=== PATIENT | male | born 1930 | race Caucasian/White ===

== ENCOUNTER 2016-05-06 16:28 | Emergency (ER) | payer MEDICARE ==
[~2016-05-06] VITALS: Ht 193 cm; Wt 93.2 kg
[~2016-05-06 16:28] MED LIST: 00186-0370-20 IH; AMOXICILLIN 50500 MG PO; ANTIVERT 12.512.5 MG PO; ASPIRIN 32325 MG/TA1 PO; ASPIRIN 32325 MG/TAB PO; ASPIRIN 81M81 MG/TA2 PO; ASTELIN NASAL S34 ML; ASTELIN NASAL S34 ML NS; ATIVAN 0.50.5 MG/TAB PO; BETAMETHASONE D15 G1 TP; BIOTENE DRY MOU DE; BONINE25 MG PO; BROVANA15 MCG/2 M IH; CELLCEPT 250MG250 MG PO; CEPHALEXIN500 M1 PO; CICLOPIROX0.771 TP; CITRACAL + D CA1 TAB; CLOTRIMAZOLE AN1 CRE TP; COMBIRESP IH; DITROPAN 5MG TAB5 MG PO; FERROUS SU325 MG/TAB PO; FLOMAX 0.40.4 MG/CAP PO; FOLIC ACID 11 MG/TA1 PO; IBU600 MG PO; IPRATROPIUM BROM3 M1 IH; LOPROX CR 15GM TOP; MEXITIL 150MG150 MG PO; MILK OF MA400 MG/52; MILLIPRED5 MG PO; MIRALAX PA17 GM/Dose PO; MUCINEX 60600 MG/TA1 PO; MUCUSRELF400T PO; MULTIPLE VITAMI1 CAP PO; MYLANTA PO; NASAREL0.025 MG/1 NS; NATURE'S BLEND400 IU PO; NORCO 325 MG-51 TAB PO; PREDNISONE 5MG5 MG PO; PREDNISONE20 MG PO; PRILOTC PO; PROSCAR 5MG5 MG PO; PULMICORT0.25 MG/2 IH; QUESTRAN LITE 41 PKT PO; QUESTRAN4 GM/9 GM PO; REQUIP0.25 MG PO; RT SPIRIVA18 MCG IH; SENNA-LAX8.6 MG PO; SENOKOT8.6 MG PO; SINGULAIR 110 MG/TAB PO; THIAMINE 1100 MG/TAB PO; TOPROL XL 25MG25 MG PO; TUMS500 MG; TUMS500 MG PO; TYLENOL 325MG325 MG PO; VENTOLIN0.09 MG IH; VICODIN 5/300 PO; VICODIN PO; VITAMIN D31000 IU PO; VITAMIN E 400 U4001 PO; ZOLOFT 100MG100 MG PO; ZOLOFT 25MG25 MG PO; ZYRTEC 10MG10 MG PO; [UNRECOGNIZED DRUG - OTHER] PO
[2016-05-06 16:44] VITALS: TEMP 97.4
[2016-05-06 16:53] LABS: BASO # 0.1 (0.0-0.2); BASO % 0.5 % (0.0-2.0); EOS # 0.1 (0.0-0.7); EOS % 1.4 % (0-4.0); GRAN # 5.8 (1.4-6.5); GRAN % 58.9 % (42.2-75.2); HEMATOCRIT 46.8 % (42.0-52.0); HEMOGLOBIN 15.3 g/dl (13.5-18.0); LYMPH # 2.9 (1.2-3.4); MEAN CELL VOLUME 98 fl (80.0-100.0); MEAN CORPUSCULAR HEMOGLOBIN 32 pg (27.0-31.0); MEAN CORPUSCULAR HGB CONC 33 g/dl (33.0-37.0); MEAN PLATELET VOLUME 10.7 fl (7.4-10.4); MONO # 0.9 (0.1-0.6); MONO % 8.9 % (1.7-9.3); PLATELET COUNT 141 K/mm3 (130-400); RED BLOOD COUNT 4.76 M/mm3 (4.20-5.60); REDCELL DISTRIBUTION WIDTH-CV 13.8 % (11.5-14.5); WHITE BLOOD COUNT 9.8 K/mm3 (4.8-10.8)
[2016-05-06] MEDS ORDERED: DULCOLAX S10 MG/SUPP RC ×2 (17:01→17:03)
[2016-05-06] MEDS ORDERED: IMODIUM 2MG CAPS2 MG PO (17:03)
[2016-05-06 17:20] LABS: ADJUSTED CALCIUM 9.5 mg/dL (8.4-10.2); ALANINE AMINOTRANSFERASE 22 U/L (21-72); ALBUMIN 4.1 gm/dL (3.5-5.0); ALKALINE PHOSPHATASE 61 U/L (50-136); ANION GAP 10 mmol/L (7-16); BLOOD UREA NITROGEN 14 mg/dL (9-20); CALCIUM 9.6 mg/dL (8.4-10.2); CARBON DIOXIDE 27 mmol/L (22-30); CHLORIDE 100 mmol/L (98-107); CREATININE, serum 0.99 mg/dL (0.66-1.25); GLUCOSE 88 mg/dL (74-106); POTASSIUM 4.6 mmol/L (3.4-5.0); SODIUM 138 mmol/L (137-145); TOTAL PROTEIN 7.9 gm/dL (6.4-8.2)
[2016-05-06] MEDS ORDERED: MIRALAX PA17 GM/Dose PO (17:24)
[2016-05-06] MEDS ORDERED: FLONASEALLERGY NS (17:29)
[2016-05-06] MEDS ORDERED: SINEMET 25/101 UDTAB PO (17:30)
[2016-05-06] MEDS ORDERED: XODOL 7.5 PO (17:31)
[2016-05-06 17:32] LABS: TROPONIN-I < 0.012 ng/mL (0.000-0.034)
[2016-05-06 17:50] LABS: THYROID STIMULATING HORMONE 0.991 uIU/mL (0.465-4.680)
[2016-05-06 18:00] LABS: ERYTHROCYTE SEDIMENTATION RATE 6 mm/hr (0-30)
[2016-05-06 18:09] LABS: CREATINE KINASE 34 U/L (55-170)
[2016-05-06 18:52] VITALS: BP 128/85; PULSE 60
== END 2016-05-06 18:59 | disposition home or self-care (01) ==
LOC: COL.ER 16:28
PROVIDERS: Emergency Medicine
DX: R00.1 Bradycardia, unspecified (principal); I49.3 Ventricular premature depolarization

== ENCOUNTER → 2016-07-26 | Outpatient (CLI) | payer MEDICARE ==
[~2016-07-26] VITALS: Ht 193 cm; Wt 88.2 kg
[~2016-07-26] MED LIST changes: +00186-0370-20 INH; +COLACE 100100 MG/CAP PO; +DULCOLAX S10 MG/SUPP RC; +FLONASEALLERGY NS; +IMODIUM 2MG CAPS2 MG PO; +IPRATROPIUM BROM3 M1 INH; +OMNICEF 300MG300 MG PO; +ROBITUSSIN A-C S1 M1 PO; +RT SPIRIVA18 MCG INH; +SINEMET 25/101 UDTAB PO; +XODOL 7.5 PO; +ZITHROMAX Z PA250 MG PO
[2016-07-26 14:12] VITALS: BP 111/59; PULSE 66; TEMP 97.2
== END ==
LOC: EUO 13:25
DX: M81.0 Age-related osteoporosis without current pathological fracture (principal)
CPT/HCPCS: J3489

== ENCOUNTER 2016-12-28 18:48 | Inpatient (IN) | payer MEDICARE ==
[~2016-12-28] VITALS: Ht 195.6 cm; Wt 86.2 kg
[~2016-12-28 18:48] MED LIST changes: -00186-0370-20 INH; -COLACE 100100 MG/CAP PO; -IPRATROPIUM BROM3 M1 INH; -OMNICEF 300MG300 MG PO; -ROBITUSSIN A-C S1 M1 PO; -RT SPIRIVA18 MCG INH; -ZITHROMAX Z PA250 MG PO
[2016-12-28 19:43] LABS: BASO # 0.1 (0.0-0.2); BASO % 0.4 % (0.0-2.0); EOS # 0.1 (0.0-0.7); EOS % 0.8 % (0-4.0); GRAN # 7.6 (1.4-6.5); GRAN % 67.6 % (42.2-75.2); HEMATOCRIT 40.9 % (42.0-52.0); HEMOGLOBIN 13.9 g/dl (13.5-18.0); LYMPH # 2.4 (1.2-3.4); LYMPH % 21.1 % (20.0-51.0); MEAN CELL VOLUME 98 fl (80.0-100.0); MEAN CORPUSCULAR HEMOGLOBIN 33 pg (27.0-31.0); MEAN CORPUSCULAR HGB CONC 34 g/dl (33.0-37.0); MEAN PLATELET VOLUME 9.8 fl (7.4-10.4); MONO # 1.1 (0.1-0.6); MONO % 9.7 % (1.7-9.3); PLATELET COUNT 137 K/mm3 (130-400); RED BLOOD COUNT 4.18 M/mm3 (4.20-5.60); REDCELL DISTRIBUTION WIDTH-CV 13.1 % (11.5-14.5); WHITE BLOOD COUNT 11.2 K/mm3 (4.8-10.8)
[2016-12-28 19:47] LABS: INR 1.1 (0.8-3.0); PROTHROMBIN TIME 11.7 SECONDS (9.7-12.8)
[2016-12-28 19:50] LABS: PARTIAL THROMBOPLASTIN TIME 43.5 SECONDS (26.0-37.0)
[2016-12-28 19:52] LABS: ADJUSTED CALCIUM 9.5 mg/dL (8.4-10.2); ALANINE AMINOTRANSFERASE 17 U/L (21-72); ALBUMIN 3.9 gm/dL (3.5-5.0); ALKALINE PHOSPHATASE 56 U/L (50-136); ANION GAP 9 mmol/L (7-16); BILIRUBIN,TOTAL 0.9 mg/dL (0.0-1.0); BLOOD UREA NITROGEN 19 mg/dL (9-20); CALCIUM 9.4 mg/dL (8.4-10.2); CARBON DIOXIDE 23 mmol/L (22-30); CHLORIDE 102 mmol/L (98-107); GLUCOSE 119 mg/dL (74-106); POTASSIUM 4.3 mmol/L (3.4-5.0); SODIUM 134 mmol/L (137-145); TOTAL PROTEIN 7.5 gm/dL (6.4-8.2)
[2016-12-28 20:04] LABS: B-TYPE NATRIURETIC PEPTIDE 1140 pg/mL (0-450)
[2016-12-28 20:06] LABS: TROPONIN-I < 0.012 ng/mL (0.000-0.034)
[2016-12-28] MEDS ORDERED: COLACE 100100 MG/CAP PO (20:11)
[2016-12-28 20:13] LABS: INFLUENZA B NEGATIVE
[2016-12-28] MEDS ORDERED: IPRATROPIUM BROM3 M1 INH (20:17)
[2016-12-28] MEDS ORDERED: 00186-0370-20 INH (20:17)
[2016-12-28] MEDS ORDERED: RT SPIRIVA18 MCG INH (20:19)
[2016-12-28 20:22] LABS: PH 7 (5-8); SQUAMOUS EPITHELIAL None Seen /hpf; URINE APPEARANCE Clear; URINE BACTERIA None Seen /hpf; URINE BILIRUBIN Negative (NEGATIVE); URINE BLOOD Negative (NEGATIVE); URINE COLOR Yellow; URINE GLUCOSE Negative (NEGATIVE); URINE KETONE Negative (NEGATIVE); URINE RBC None Seen /hpf; URINE UROBILINOGEN Negative (NEGATIVE); URINE WBC 0-2 /hpf
[2016-12-28 23:47] VITALS: BP 158/78; PULSE 87; TEMP 100
[2016-12-29] VITALS (8 sets, daily range): BP systolic 91–158; BP diastolic 47–78; PULSE 73–103; TEMP 97.5–100.6
[2016-12-30 03:59] VITALS: BP 95/55; PULSE 69; TEMP 97.2
[2016-12-30 08:28] VITALS: BP 97/47; PULSE 82; TEMP 98.2
[2016-12-30 09:00] LABS: BASO % 0.3 % (0.0-2.0); EOS # 0.1 (0.0-0.7); EOS % 1.1 % (0-4.0); GRAN # 5.1 (1.4-6.5); GRAN % 67.3 % (42.2-75.2); HEMATOCRIT 37.3 % (42.0-52.0); HEMOGLOBIN 12.3 g/dl (13.5-18.0); LYMPH # 1.8 (1.2-3.4); LYMPH % 23.4 % (20.0-51.0); MEAN CELL VOLUME 100 fl (80.0-100.0); MEAN CORPUSCULAR HEMOGLOBIN 33 pg (27.0-31.0); MEAN CORPUSCULAR HGB CONC 33 g/dl (33.0-37.0); MEAN PLATELET VOLUME 9.9 fl (7.4-10.4); MONO # 0.6 (0.1-0.6); MONO % 7.6 % (1.7-9.3); PLATELET COUNT 106 K/mm3 (130-400); RED BLOOD COUNT 3.75 M/mm3 (4.20-5.60); REDCELL DISTRIBUTION WIDTH-CV 13.2 % (11.5-14.5); WHITE BLOOD COUNT 7.5 K/mm3 (4.8-10.8)
[2016-12-30 09:21] LABS: CALCIUM 8.8 mg/dL (8.4-10.2); CREATININE, serum 0.83 mg/dL (0.66-1.25); POTASSIUM 3.8 mmol/L (3.4-5.0)
[2016-12-30 11:39] VITALS: BP 111/75; PULSE 83; TEMP 98.3
[2016-12-30 15:23] VITALS: BP 116/64; PULSE 76; TEMP 97.9
[2016-12-31] VITALS: BP 137/84; PULSE 77; TEMP 97.6
[2016-12-31 04:45] VITALS: BP 131/64; PULSE 63; TEMP 97.8
[2016-12-31 08:16] VITALS: BP 128/63; PULSE 75; TEMP 97.6
[2016-12-31 13:06] VITALS: BP 124/70; PULSE 70; TEMP 98.2
[2016-12-31 15:39] VITALS: BP 118/63; PULSE 63; TEMP 97.9
[2016-12-31 21:40] VITALS: BP 136/66; PULSE 58; TEMP 97.8
[2017-01-01 01:08] VITALS: BP 86/66; PULSE 60; TEMP 98.1
[2017-01-01 04:58] VITALS: BP 118/70; PULSE 62; TEMP 97.7
[2017-01-01 08:17] LABS: BASO % 0.2 % (0.0-2.0); EOS % 0.2 % (0-4.0); GRAN # 4.4 (1.4-6.5); GRAN % 69.7 % (42.2-75.2); LYMPH # 1.5 (1.2-3.4); LYMPH % 23.6 % (20.0-51.0); MEAN CELL VOLUME 100 fl (80.0-100.0); MEAN CORPUSCULAR HEMOGLOBIN 32 pg (27.0-31.0); MEAN CORPUSCULAR HGB CONC 32 g/dl (33.0-37.0); MEAN PLATELET VOLUME 10.3 fl (7.4-10.4); MONO # 0.4 (0.1-0.6); PLATELET COUNT 129 K/mm3 (130-400); RED BLOOD COUNT 3.71 M/mm3 (4.20-5.60); REDCELL DISTRIBUTION WIDTH-CV 12.9 % (11.5-14.5); WHITE BLOOD COUNT 6.3 K/mm3 (4.8-10.8)
[2017-01-01 08:28] LABS: ADJUSTED CALCIUM 9.6 mg/dL (8.4-10.2); ALBUMIN 3.3 gm/dL (3.5-5.0); BILIRUBIN,TOTAL 0.7 mg/dL (0.0-1.0); CREATININE, serum 0.67 mg/dL (0.66-1.25); POTASSIUM 3.9 mmol/L (3.4-5.0); TOTAL PROTEIN 6.7 gm/dL (6.4-8.2)
[2017-01-01 09:10] VITALS: BP 149/74; PULSE 63; TEMP 97
[2017-01-01 12:18] VITALS: BP 137/64; PULSE 63; TEMP 97.4
[2017-01-01] MEDS ORDERED: OMNICEF 300MG300 MG PO (13:32)
[2017-01-01] MEDS ORDERED: ZITHROMAX Z PA250 MG PO (13:34)
[2017-01-01] MEDS ORDERED: ROBITUSSIN A-C S1 M1 PO (13:36)
[2017-01-01 14:01] VITALS: BP 137/64; PULSE 63; TEMP 97.4
== END 2017-01-01 14:55 | DRG 871 ==
LOC: COL.ER 18:48 → MEDICAL 20:58
PROVIDERS: Emergency Medicine; Nurse Practitioner
DX: A41.9 Sepsis, unspecified organism (principal); J18.9 Pneumonia, unspecified organism; E87.1 Hypo-osmolality and hyponatremia; E44.0 Moderate protein-calorie malnutrition; G20 Parkinson's disease; I12.9 Hypertensive chronic kidney disease with stage 1 through stage 4 chronic kidney disease, or unspecified chronic kidney disease; N18.3 Chronic kidney disease, stage 3 (moderate); E11.42 Type 2 diabetes mellitus with diabetic polyneuropathy; J44.9 Chronic obstructive pulmonary disease, unspecified; Z87.891 Personal history of nicotine dependence; Z95.2 Presence of prosthetic heart valve; D69.6 Thrombocytopenia, unspecified
CPT/HCPCS: 99223-AI; 99233-AI; 99239; A9284; J0456; J0696; J1650; J1720; J1940; J7030; J7050; J7512

== ENCOUNTER 2017-05-01 20:46 | Emergency (ER) | payer MEDICARE ==
[~2017-05-01] VITALS: Ht 182.9 cm; Wt 86.4 kg
[~2017-05-01 20:46] MED LIST changes: +00186-0370-20 INH; +COLACE 100100 MG/CAP PO; +IPRATROPIUM BROM3 M1 INH; +OMNICEF 300MG300 MG PO; +ROBITUSSIN A-C S1 M1 PO; +RT SPIRIVA18 MCG INH; +ZITHROMAX Z PA250 MG PO
[2017-05-01 21:13] LABS: BASO % 0.3 % (0.0-2.0); EOS % 0.3 % (0-4.0); GRAN # 5.3 (1.4-6.5); GRAN % 73.5 % (42.2-75.2); HEMATOCRIT 40.6 % (42.0-52.0); HEMOGLOBIN 13.9 g/dl (13.5-18.0); LYMPH # 1.2 (1.2-3.4); LYMPH % 16.8 % (20.0-51.0); MEAN CELL VOLUME 98 fl (80.0-100.0); MEAN CORPUSCULAR HEMOGLOBIN 34 pg (27.0-31.0); MEAN CORPUSCULAR HGB CONC 34 g/dl (33.0-37.0); MEAN PLATELET VOLUME 10.2 fl (7.4-10.4); MONO # 0.6 (0.1-0.6); MONO % 8.8 % (1.7-9.3); PLATELET COUNT 114 K/mm3 (130-400); RED BLOOD COUNT 4.15 M/mm3 (4.20-5.60)
[2017-05-01 21:20] LABS: ALBUMIN 3.8 gm/dL (3.5-5.0); BILIRUBIN,TOTAL 1.5 mg/dL (0.0-1.0); CALCIUM 9.3 mg/dL (8.4-10.2); CREATININE, serum 0.96 mg/dL (0.66-1.25); POTASSIUM 4.2 mmol/L (3.4-5.0); TOTAL PROTEIN 7.8 gm/dL (6.4-8.2)
[2017-05-01 21:27] LABS: INFLUENZA A NEGATIVE; INFLUENZA B NEGATIVE
[2017-05-01] MEDS ORDERED: LEVAQUIN 750MG750 M1 PO (21:50)
[2017-05-01] MEDS ORDERED: ZOFRAN ODT4 MG PO (21:50)
[2017-05-01 23:02] VITALS: BP 90/55; PULSE 80; TEMP 98.1
== END 2017-05-01 23:02 | disposition home or self-care (01) ==
LOC: COL.ER 20:46
PROVIDERS: Emergency Medicine
DX: J18.1 Lobar pneumonia, unspecified organism (principal); I10 Essential (primary) hypertension; F17.210 Nicotine dependence, cigarettes, uncomplicated; J45.909 Unspecified asthma, uncomplicated; Z98.890 Other specified postprocedural states
CPT/HCPCS: J2405; J7030

== ENCOUNTER → 2017-10-05 | Outpatient (CLI) | payer MEDICARE ==
[~2017-10-05] VITALS: Ht 182.9 cm; Wt 91.0 kg
[~2017-10-05] MED LIST changes: +LEVAQUIN 750MG750 M1 PO; +ZOFRAN ODT4 MG PO
[2017-10-05 13:30] VITALS: BP 118/91; PULSE 69; TEMP 97.7
== END ==
LOC: EUO 12:57
DX: M81.0 Age-related osteoporosis without current pathological fracture (principal)
CPT/HCPCS: J3489

== ENCOUNTER → 2018-02-23 | Outpatient (CLI) | payer MEDICARE ==
[~2018-02-23] MED LIST changes: +CLEOCIN HCL300 MG PO; +MIRAPEX0.5 MG PO; +VITAMIN B-1000 MCG/T PO
== END ==
LOC: COL.RAD 09:29
DX: K59.00 Constipation, unspecified (principal); N28.1 Cyst of kidney, acquired; D73.4 Cyst of spleen; Z90.49 Acquired absence of other specified parts of digestive tract

== ENCOUNTER 2018-05-09 16:13 | Emergency (ER) | payer MEDICARE ==
[~2018-05-09] VITALS: Ht 195.6 cm; Wt 90.0 kg
[2018-05-09 16:21] VITALS: TEMP 97.7
[2018-05-09] MEDS ORDERED: TYLENOL SU650 MG/SUP RC (17:13)
[2018-05-09] MEDS ORDERED: AMOXICILLIN 50500 MG PO (17:14)
[2018-05-09] MEDS ORDERED: LIQUIFILM TEARS15 ML OU (17:15)
[2018-05-09] MEDS ORDERED: AZILECT1 MG PO (17:16)
[2018-05-09] MEDS ORDERED: MAGNESIUM250 M1 PO (17:26)
[2018-05-09 17:48] LABS: TROPONIN-I 0.021 ng/mL (0.000-0.034)
[2018-05-09 18:00] LABS: ARTERIAL BLD GAS O2 SATURATION 96.3 % (92-100); ARTERIAL BLD GAS TCO2 CT 24.2; ARTERIAL BLOOD GAS BASE EXCESS -1.2 (-2-2); ARTERIAL BLOOD GAS PCO2 37.3 mmHg (35-45); ARTERIAL BLOOD GAS PO2 84.4 mmHg (80-100); ARTERIAL BLOOD GAS pH 7.41 (7.35-7.45)
[2018-05-09] MEDS ORDERED: LEVAQUIN 750MG750 M1 PO (19:05)
[2018-05-09] MEDS ORDERED: PREDNISONE20 MG PO (19:05)
[2018-05-09 19:43] VITALS: BP 147/77; PULSE 69
== END 2018-05-09 19:50 | disposition home or self-care (01) ==
LOC: COL.ER 16:13
PROVIDERS: Emergency Medicine
DX: J44.1 Chronic obstructive pulmonary disease with (acute) exacerbation (principal); J40 Bronchitis, not specified as acute or chronic; I10 Essential (primary) hypertension; G20 Parkinson's disease; I25.10 Atherosclerotic heart disease of native coronary artery without angina pectoris; Z90.49 Acquired absence of other specified parts of digestive tract; Z87.891 Personal history of nicotine dependence
CPT/HCPCS: J1956; J7030; J7512

== ENCOUNTER 2018-06-22 10:06 | Emergency (ER) | payer MEDICARE ==
[~2018-06-22] VITALS: Ht 193 cm; Wt 88.4 kg
[~2018-06-22 10:06] MED LIST changes: +AZILECT1 MG PO; +LIQUIFILM TEARS15 ML OU; +MAGNESIUM250 M1 PO; +TYLENOL SU650 MG/SUP RC
[2018-06-22 10:28] VITALS: TEMP 96.9
[2018-06-22 10:56] LABS: BASO % 0.2 % (0.0-2.0); EOS # 0.1 (0.0-0.7); EOS % 0.5 % (0-4.0); GRAN # 9.5 (1.4-6.5); GRAN % 74.1 % (42.2-75.2); HEMATOCRIT 43.5 % (42.0-52.0); HEMOGLOBIN 14.5 g/dl (13.5-18.0); LYMPH % 15.9 % (20.0-51.0); MEAN CELL VOLUME 99 fl (80.0-100.0); MEAN CORPUSCULAR HEMOGLOBIN 33 pg (27.0-31.0); MEAN CORPUSCULAR HGB CONC 33 g/dl (33.0-37.0); MEAN PLATELET VOLUME 9.9 fl (7.4-10.4); MONO # 1.2 (0.1-0.6); PLATELET COUNT 131 K/mm3 (130-400); RED BLOOD COUNT 4.38 M/mm3 (4.20-5.60); REDCELL DISTRIBUTION WIDTH-CV 13.2 % (11.5-14.5)
[2018-06-22 11:00] LABS: INR 1.1 (0.8-3.0); PROTHROMBIN TIME 12.6 SECONDS (9.7-12.8)
[2018-06-22 11:04] LABS: ALANINE AMINOTRANSFERASE 8 U/L (21-72); ALBUMIN 3.8 gm/dL (3.5-5.0); ALKALINE PHOSPHATASE 64 U/L (50-136); ANION GAP 8 mmol/L (7-16); AST,SGOT 22 U/L (15-37); BILIRUBIN,TOTAL 1.2 mg/dL (0.0-1.0); BLOOD UREA NITROGEN 21 mg/dL (9-20); CALCIUM 9.6 mg/dL (8.4-10.2); CARBON DIOXIDE 27 mmol/L (22-30); CHLORIDE 97 mmol/L (98-107); CREATININE, serum 1.04 mg/dL (0.66-1.25); GLUCOSE 108 mg/dL (74-106); LIPASE 19 U/L (23-300); POTASSIUM 4.6 mmol/L (3.4-5.0); SODIUM 132 mmol/L (137-145); TOTAL PROTEIN 7.7 gm/dL (6.4-8.2)
[2018-06-22 11:17] LABS: TROPONIN-I < 0.012 ng/mL (0.000-0.035)
[2018-06-22 12:40] LABS: COLLECTION METHOD CLEAN CATCH
[2018-06-22 12:47] LABS: PH 7 (5-8); SQUAMOUS EPITHELIAL 0-2 /hpf; URINE APPEARANCE Clear; URINE BACTERIA None Seen /hpf; URINE BILIRUBIN Negative (NEGATIVE); URINE BLOOD Negative (NEGATIVE); URINE COLOR Yellow; URINE GLUCOSE Negative (NEGATIVE); URINE KETONE Negative (NEGATIVE); URINE LEUKOCYTE ESTERASE Negative (NEGATIVE); URINE NITRATE Negative (NEGATIVE); URINE PROTEIN(semi-quant) Negative (NEGATIVE); URINE RBC 0-2 /hpf; URINE UROBILINOGEN Negative (NEGATIVE)
[2018-06-22 14:10] VITALS: BP 129/82; PULSE 72
== END 2018-06-22 14:10 | disposition home or self-care (01) ==
LOC: COL.ER 10:06
PROVIDERS: Emergency Medicine
DX: R33.9 Retention of urine, unspecified (principal); R53.1 Weakness
CPT/HCPCS: J7030